=== PATIENT | male | born 1975 | race Caucasian/White ===

== ENCOUNTER 2017-03-13 21:11 | Emergency (ER) | payer SELFPAY ==
[~2017-03-13 21:11] MED LIST: BUPR150T3 PO; Z.0.NO CURRENT MEDS
[2017-03-13 21:14] VITALS: BP 141/97; PULSE 120; RESP 15; TEMP 98.7; O2SAT 96
== END 2017-03-13 22:00 | disposition left against medical advice (07) ==
LOC: NED 21:11
DX: R68.89 Other general symptoms and signs (principal)
CPT/HCPCS: 99281